=== PATIENT | male | born 1940 | race Caucasian/White ===

== ENCOUNTER 2021-03-19 14:56 | Emergency (ER) | payer MEDICARE ==
[2021-03-19] MEDS ORDERED: Fluorescein Opthalmic Strip ONE (15:16)
[2021-03-19] MEDS ORDERED: Tetracaine 0.5% PF 4 ML BOT ONE (15:16)
== END 2021-03-19 15:42 | disposition home or self-care (01) ==
LOC: NAV ERS 14:56
DX: S05.01XA Injury of conjunctiva and corneal abrasion without foreign body, right eye, initial encounter (principal); F17.210 Nicotine dependence, cigarettes, uncomplicated; X58.XXXA Exposure to other specified factors, initial encounter
CPT/HCPCS: 99282